=== PATIENT | female | born 1945 | race Two or more races ===

== ENCOUNTER 2019-03-18 11:08 | Outpatient (CLI) | payer OTHER | END 2019-03-18 11:15 | disposition home or self-care (01) | LOC: NUCLEAR 11:08 | DX: M81.0 Age-related osteoporosis without current pathological fracture (principal) ==

== ENCOUNTER 2022-02-20 10:17 | Outpatient (CLI) | payer OTHER | END 2022-02-20 10:18 | disposition home or self-care (01) | LOC: NUCLEAR 10:17 | PROVIDERS: ATTEND Internal Medicine Cardiovascular Disease | DX: M81.0 Age-related osteoporosis without current pathological fracture (principal); E55.9 Vitamin D deficiency, unspecified ==